=== PATIENT | female | born 1945 ===

== ENCOUNTER 2025-02-05 13:20 | Outpatient (CLI) | payer OTHER, SELFPAY ==
[2025-02-05 13:25] LABS: Microscopic, Urine URINE MICROSCOPIC (MICROSCOPIC)
[2025-02-05 13:29] LABS: Appearance,Urine SL CLOUDY (Clear); Bilirubin,Urine Negative (Negative); Blood, Urine Negative (Negative); Color,Urine YELLOW (Yellow); Glucose,Urine (UA) Negative (Negative); Ketones,Urine Negative (Negative); Leukocyte Esterase,Urine 1+ (Negative); Nitrate,Urine POSITIVE (Negative); PH,Urine 5.5 (5.0-8.5); Protein,Urine Negative (Negative); Specific Gravity, Urine 1.025 (1.005-1.030); Urobilinogen,Urine 0.2 EU/dl (0.2)
[2025-02-05 13:53] LABS: Bacteria,Urine 3+ /lpf; Squamous Epithelial Cell,Urine Occasional #/hpf (0-5); WBC,Urine 20-50 #/hpf (0-3)
== END 2025-02-05 23:59 | disposition home or self-care (01) ==
LOC: LAB.DROPOF 13:22
PROVIDERS: PCP Family Medicine Hospice and Palliative Medicine; Visit Provider Family Medicine Hospice and Palliative Medicine
DX: G30.9 Alzheimer's disease, unspecified (principal); N39.0 Urinary tract infection, site not specified
CPT/HCPCS: 81001; 87086; 87088; 87186